=== PATIENT | male | born 1985 | race Caucasian/White ===

== ENCOUNTER 2021-12-18 08:41 | Inpatient (IN) | payer BC, SELFPAY ==
[2021-12-18] VITALS (9 sets, daily range): BP systolic 112–146; BP diastolic 71–101; PULSE 104–123; RESP 14–18; TEMP 37–37.7; O2SAT 96; BMI 41.2
--- NOTE | ~2021-12-18 | XR_ITS ---
XR chest 2V DATE: 12/18/2021 09:20 INDICATION: Shortness of breath, cough. Hypertension. TECHNIQUE: PA and lateral views COMPARISON: None FINDINGS: Ill-defined increased density overlies the posterior lower lobes on the lateral view. Mild infiltrate or atelectasis is suggested in the lower lobes, right greater than left. Recommend clinica l correlation. Follow-up chest radiographs and CT chest if necessary are recommended. Normal heart size. No pleural effusion or pulmonary vascular congestion or pneumothorax. IMPRESSION: Bilateral lower lobe infiltrate or atelectasis is suggested. Recommend continued radiogra phic follow-up to ensure clearing. Reviewed, dictated and finalized at location A. IMPRESSION: Bilateral lower lobe infiltrate or atelectasis is suggested. Recomm end continued radiographic follow-up to ensure clearing.
--- NOTE | ~2021-12-18 | CT_ITS ---
EXAMINATION: CTA chest PE protocol DATE: 12/18/2021 10:36 INDICATION: Shortness of breath. Elevated d-dimer. TECHNIQUE: Computed tomography angiography (CTA) of the chest was performed with 100 mL Omnipaque-350 intravenous contrast timed to evaluate the pulmonary arteries. Coronal maximum intensity projection 3D-reconstructions were created by the technologist. Automated exposure control and iterative reconst ruction technique were employed. Exam dose: 975.75 mGy-cm total exam DLP. COMPARISON: None. FINDINGS: There is suboptimal contrast enhancement of the pulmonary arteries due to timing, with grea ter concentration of contrast material in the aorta. However, some filling defects consistent with pu lmonary emboli are identified bilaterally, including the left upper lobe and right lower lobe in part icular. Normal heart size. No pericardial or pleural effusion. No thoracic aortic aneurysm or dissection. No hilar or mediastinal mass lesion or lymphadenopathy. Minimal patchy posterior segment right upper lobe infiltrate. Minimal patchy posterior middle lobe in filtrate. Prominent patchy consolidating right lower lobe infiltrate. Minimal patchy left lower lobe infiltrate. Normal morphology of the adrenal glands. No suspicious osteolytic or osteoblastic lesions. IMPRESSION: Bilateral infiltrates, most prominent in the right lower lobe, suggesting bilateral pneu monia Mild bilateral pulmonary embolism Reviewed, dictated and finalized at Location [facility]. Reviewed, dictated and finalized at location A. IMPRESSION: Bilateral infiltrates, most prominent in the right lower lobe, sug gesting bilateral pneumonia Mild bilateral pulmonary embolism
--- NOTE | 2021-12-18 09:01 | ECG_ITS ---
Measurements Intervals [place] Rate: 106 P: 17 WI: 152 QRS: 13 QRSD: 98 T: -5 QT: 317 QTc: 421 Interpretive Statements SINUS TACHYCARDIA NONSPECIFIC T-WAVE ABNORMALITY ABNORMAL RHYTHM ECG NO PREVIOUS ECG AVAILABLE FOR COMPARISON Electronically Signed On 12-18-2021 15:33:56 CDT by Noah Steve M.D.
[2021-12-18 09:33] LABS: Basophils Absolute Auto 0.1 K/mm3 (0.0-0.1); Basophils Percent Auto 0.7 % (0.2-1.2); Eosinophils Absolute Auto 0.4 K/mm3 (0-0.3); Eosinophils Percent Auto 2.8 % (0-4.4); Hematocrit 44.3 % (42.0-52.0); Hemoglobin 14.3 g/dL (14.0-18.0); Immature Granulocyte Absolute 0.16 K/mm3 (0.00-0.031); Immature Granulocyte Percent A 1.3 % (0-0.5); Lymphocytes Absolute Auto 2.36 K/mm3 (0.9-3.2); Lymphocytes Percent Auto 18.6 % (18.3-44.2); Mean Corpuscular HGB Conc 32.3 g/dl (32-36); Mean Corpuscular Hemoglobin 27.1 pg (26-34); Mean Corpuscular Volume 84.1 fl (80-100); Mean Platelet Volume 10.6 fl (7.4-10.4); Monocytes Absolute Auto 0.6 K/mm3 (0.1-0.6); Monocytes Percent Auto 4.8 % (2.6-8.5); Neutrophils Absolute Auto 9.1 K/mm3 (1.3-6.7); Neutrophils Percent Auto 71.8 % (45.5-73.1); Platelet Count Result 375 k/mm3 (150-375); Red Blood Count 5.27 M/mm3 (4.6-6.20); Red Cell Distribution Width 13.5 % (11.5-14.5); White Blood Count 12.7 K/mm3 (4.5-10.0)
[2021-12-18 09:43] LABS: Alanine Aminotransferase 56 U/L (6-50); Albumin Level 4.4 g/dL (3.5-5.1); Alkaline Phosphatase 108 U/L (38-126); Anion Gap 7 mmol/L (8-16); Aspartate Amino Transferase 28 U/L (17-59); Bilirubin,Total 0.4 mg/dL (0.2-1.3); Blood Urea Nitrogen 15 mg/dL (9-20); Calcium 9.1 mg/dL (8.4-10.2); Carbon Dioxide 28 mmol/L (22-30); Chloride 104 mmol/L (98-107); Estimated CRCL calculation 152 ml/min; Estimated Glomerular Filt Rate > 60; Glucose 144 mg/dL (65-110); Potassium 4.3 mmol/L (3.4-5.0); Sodium 139 mmol/L (137-145)
[2021-12-18 09:44] LABS: Lactic Acid Reflex 0.9 mmol/L (0.7-2.0)
[2021-12-18 09:46] LABS: Prothrombin Time 13.1 Seconds (11.1-14.7)
[2021-12-18 09:49] LABS: D Dimer 0.62 ug/mL (<0.48)
[2021-12-18 09:56] LABS: NT Pro B Type Natriuretic Pept 37 pg/mL (5-100); Troponin I < 0.012 ng/mL (0.000-0.034)
--- NOTE | 2021-12-18 10:07 | ED.URI ---
HPI - URI/Sore Throat General Chief Complaint: Upper Respiratory Infection Stated Complaint: shortness of breath, HTN Time Seen by Provider: 12/18/21 08:46 Source: patient and RN notes reviewed Mode of arrival: ambulatory Limitations: no limitations History of Present Illness HPI Narrative: This is a 36 year old male who presents for evaluation of shortness of breath and hypertension. Patient states over 1 week ago he developed sore throat and cough. He was evaluated at an urgent care . He continued to have cough, sore throat with hoarseness so he was started on antibiotics and steroids by his PCP. He has also had episodes of cold sweats. He denies chest pain but he is having shortness of breath. He noticed that his blood pressure was systolic 170s so he was referred to ER by PCP. He denies history of hypertension. He denies leg swelling or pain. HE denies history of heart, lung disease. Related Data Allergies Allergy/AdvReac Type Severity Reaction Status Date / Time levofloxacin Allergy Unknown rash Verified 12/18/21 09:00 Review of Systems Review of Systems: All systems reviewed & are unremarkable except as noted in HPI and below Constitutional: Constitutional: Denies chills, Reports fatigue and Denies fever(s) Eyes: Eyes: Denies change in vision ENT: Denies nasal congestion and Reports sore throat Cardiovascular: Cardiovascular: Denies chest pain, Denies rapid heart rate and Denies radiating jaw, neck or arm pain Respiratory: Respiratory: Reports chest congestion, Reports dyspnea and Reports wheezing Gastrointestinal: Gastrointestinal: Denies abdominal pain, Denies bloating, Denies constipation, Denies heartburn, Denies diarrhea, Denies nausea and Denies vomiting Genitourinary: Genitourinary: Denies hematuria and Denies oliguria Neurologic: Denies syncope, Denies headache(s), Denies focal weakness and Denies numbness Psychiatric: Psychiatric: Denies anxiety and Denies depression Allergic/Immunologic: Allergic/Immunologic: Denies lip swelling and Denies throat swelling [facility] Past Medical History Medical History Appendicitis Lumbar disc disease Morbid (severe) obesity due to excess calories Surgical History Surgical History History of appendectomy 2004 Previous back surgery 2004 Family History Family History Mother Family history of premature coronary heart disease Father Hypertension History of kidney cancer Grandparent Diabetes mellitus Sibling Crohn's disease Other CHF (congestive heart failure) Social History Social History Smoking status: Never smoker Second hand tobacco smoke exposure: Yes Alcohol intake: current Drinks per week: 10 Substance use: never Substance use type: does not use 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 Gender identity (if verbalized by the patient): Male Spiritual care concerns: No Exam Const: General: alert and diaphoretic Nutritional Appearance: obese Orientation/consciousness: patient oriented x3 Limitations: no limitations HENMT: Head: normal to inspection Face and sinus: normal facial exam Mouth: Yes Normal oral and palatal mucosa present Throat: posterior oropharynx normal Eyes: EOM: EOMs intact bilaterally Chest: Chest palpation & inspection: normal inspection of the chest Resp: Effort & Inspection: normal respiratory effort Auscultation: clear to auscultation bilaterally Cardio: Rate: tachycardic Rhythm: regular rhythm Heart sounds: no murmurs GI: GI Palp: Yes Soft to palpation, No Tenderness to palpation present (GI) and No Rigid due to palpation Auscultation: normal bowel sounds Back/Spine/Pelvis: Back: no CVA tenderness Skin: Rashes: no rashes Woun
[2021-12-18 10:37] LABS: Influenza A QL RT-PCR Negative (Negative); Influenza B QL RT-PCR Negative (Negative); SARS-CoV-2 RNA PCR Negative
[2021-12-18 10:39] LABS: Monoscreen Negative (Negative); Negative Monotest Control Negative (Negative); Positive Monotest Control Positive (Positive)
[2021-12-18] MEDS: ENOXAPARIN 120 MG/0.8 ML SYRINGE 160 MG SUB-Q (12:00)
--- NOTE | 2021-12-18 14:34 | PM.IMHP ---
H&P: HPI History of Present Illness Date/Time: 12/18/21 14:34 Chief Complaint: Upper respiratory tract x 1 week Narrative: 36-year-old male with past medical history of appendicitis and ruptured discs who presents to our care with complaints of URI x 10 days. He reports he first began to feel bad on the 08 of December, and then broke out into a fever on the 10 of December. He developed a cough by the and lost his voice the next day which is what prompted him to go to the urgent care. He was diagnosed with an upper respiratory tract infection and was given Tylenol with codeine and Tessalon pearls, which didn't help his symptoms. By last Saturday he began to have severe sore throat and had a telehealth visit with his primary care provider who started him on cefdinir, a steroid, and an inhaler to be used twice a day and was diagnosed with possibly mono. He was advised to discontinue the steroid if his blood pressure got above 140/90. On Saturday his BP reached 175/117 and he discontinued the steroid. He continued to have pain in his throat and chest when coughing, was breaking out into sweats, and overall feeling worse so was subsequently advised by primary care to come to the ER. He does report a long airplane flight from the [place] on the 25 of November (3 weeks ago). He denied any calf pain or swelling. He also denies hemoptysis, chest pain palpitations, rapid heart rate, wheezing, diarrhea, nausea, vomiting, abdominal pain, urinary changes, syncope, or reduced appetite or thirst. He denies any chronic medical conditions and is not taking any prescription, OTC, or supplemental medications aside from those prescribed recently by the urgent care and PCP. He has a history of appendicitis with appendectomy in 2003 and a back surgery in 2004 related to ruptured discs in his back. He reports a significant family history of heart disease, with his father having CHF and hypertension and his mother with multiple MIs and cardiac stents. He denies any family history of blood clots or coagulopathy to the best of his knowledge. He admits he has not seen a primary care provider in over 2 years and does not believe he has received any diabetic or cholesterol screening, though he acknowledges he certainly has risk factors and wishes to make a change. He admits to a poor diet. 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 He drinks a few times a month anywhere from 2 -12 drinks, depending on the event. He is a never smoker and denies any use of elicit substances, marijuana, or street drug use. ER workup was significant for chest CTA PE protocol showing bilateral infiltrates, most prominent in the right lower lobe, suggesting bilateral pneumonia, and mild bilateral pulmonary embolism. Leukocytosis at 12.7, Lactic acid 0.9, elevated D-Dimer, negative troponin, EKG showing sinus tachycardia, Q wave and T wave inversion in lead III, chest x-ray showing bilateral lobe infiltrate or atelectasis. Patient's current vitals include heart rate 111, RR 18/ O2 sat 96% on RA, BP 112/71, and Tmax 98.9?. At this time, he will be admitted for further treatment in the setting of acute pulmonary emboli, as well as CAP. Discussed this plan with the patient who agreed. Patient's was in the room during my encounter and the patient did consent to discussing his medical care with her. Review of Systems Review of Systems: All systems reviewed & are unremarkable except as noted in HPI and below PMFSH Past Medical History Medical History Appendicitis Lumbar disc disease Morbid (severe) obesity due to excess calories Surgical History Surgical History History of appendectomy 2003 Previous back surgery 2004 Family History Family History Mother Family history of premature coronary heart dise
[2021-12-18] MEDS: ALBUTEROL SULFATE NEB 2.5 MG/3 ML INH 5 MG INHALATION ×2 (14:38→19:34)
[2021-12-18] MEDS: IPRATROPIUM BR 0.02% INH SOLN 0.5 MG/2.5 ML VIAL INHALATION ×2 (14:38→19:35)
[2021-12-18 15:08] LABS: Cholesterol 186 mg/dL (0-200); HDL Direct 30 mg/dL; Triglycerides 189 mg/dL (<150)
[2021-12-18 15:19] LABS: LDL Cholesterol Direct 111 mg/dL
[2021-12-18 15:27] LABS: Magnesium 2.3 mg/dL (1.6-2.3)
[2021-12-18 15:35] LABS: Hemoglobin A1C 6.6 % (<5.7)
[2021-12-18 15:43] LABS: Procalcitonin 0.1 ng/mL
--- NOTE | 2021-12-18 15:47 | ADMGEN ---
This patient, Eligio Munoz, was admitted to Medical Room 346-01. Patient/family oriented to hospital policies and general routines including ID bracelet, bed and alarms, visiting hours, pain management, procedures, bathroom and other care routines, personal items, smoking policy, room service/diet, and visiting hours. Information on how to activate the Rapid Response Team has been discussed. Patient/Family are encouraged to report perceived risks to care and to ask questions if they do not understand what they are told or what they should do.
[2021-12-18] MEDS: METOPROLOL TARTRATE INJ 5 MG/5 ML VIAL IV PUSH (15:56)
[2021-12-18 16:21] LABS: Lactic Acid Reflex 1.2 mmol/L (0.7-2.0)
[2021-12-18] MEDS: BENZONATATE 100 MG CAPSULE 200 MG PO (16:25)
[2021-12-18 16:37] LABS: Appearance Urine Slightly Cloudy (Clear); Bilirubin Urine Negative (Negative); Blood Urine Negative (Negative); Color Urine Yellow (Yellow); Glucose Urine UA Negative (Negative); Ketones Urine Negative (Negative); Leukocyte Esterase Ur Negative LEU/UL (Negative); Nitrate Urine Negative (Negative); Protein Urine 1+ mg/dL (Negative); Specific Grav Ur 1.015 (1.001-1.035); Urobilinogen Urine 0.2 mg/dL (<2.0)
[2021-12-18 16:41] LABS: Add Urine Microscopic? YES; Mucus Urine Rare /lpf; Squamous Epithelial Cell Urine Rare /hpf (Few); WBC Urine 0-3 /hpf
[2021-12-18 16:57] LABS: Glucose Point of Care 134 mg/dl (65-105)
[2021-12-18 17:25] LABS: Troponin I < 0.012 ng/mL (0.000-0.034)
[2021-12-18] MEDS: guaiFENesin 12 HR 600 MG TABCR 1200 MG PO (20:00)
[2021-12-18 21:04] LABS: Glucose Point of Care 229 mg/dl (65-105)
[2021-12-18] MEDS: ENOXAPARIN 80 MG/0.8 ML SYRINGE 160 MG SUB-Q (23:48)
[2021-12-19] VITALS (14 sets, daily range): BP systolic 128–134; BP diastolic 75–80; PULSE 69–105; RESP 16–18; TEMP 36.6–36.9; O2SAT 96
--- NOTE | 2021-12-19 | ECHO_ITS ---
Patient Info Name: Eligio Munoz Age: 36 years : 1985 Gender: Male Ht: 72 in Wt: 350 lbs BSA: 2.92 m2 HR: 85 bpm BP: 128 / 75 mmHg Technical Quality: Fair Exam Date: 12/19/2021 8:33 AM Exam Location: [facility] Patient Status: Outpatient Admit Date: 12/18/2021 Staff Ordering Physician: Alysha Hdz PA-C Felled Seam Operator Chain[employer]ch: Aftab Alba RDCS, RT Attending Provider: Alysha Hdz PA-C Referring Physician: Andreina ASTUDILLO; Exam Type: CA echo doppler color flow Study Info Indications I26.99 - Other pulmonary embolism without acute cor pulmonale Complete two-dimensional, color flow and Doppler transthoracic echocardiogram is performed. Summary 1. Complete two-dimensional, color flow and Doppler transthoracic echocardiogram is performed. 2. Left ventricular chamber dimension is mildly enlarged. 3. Left ventricular systolic function is normal, estimated at 60-65%. 4. The left ventricular diastolic function is grade I diastolic dysfunction. 5. E/e' 6 is not elevated. Left Ventricle E/e' 6 is not elevated. Left ventricular chamber dimension is mildly enlarged. Left ventricular systolic function is normal, estimated at 60-65%. The left ventricular diastolic function is grade I diastolic dysfunction. Right Ventricle Right ventricular systolic function is normal and with normal TAPSE 2.4 cm. Right ventricular chamber dimension is normal. Left Atria Left atrial chamber dimension is normal. Right Atria Right atrial chamber dimension is normal. Aortic Valve The aortic valve is trileaflet. There is no aortic valve stenosis. There is no aortic valve regurgitation. Pulmonic Valve There is no pulmonic regurgitation. Mitral Valve There is no mitral valve stenosis. There is no mitral valve regurgitation. Tricuspid Valve There is no tricuspid valve regurgitation. Pericardium/Pleural There is no pericardial effusion. Inferior Vena Cava Inferior vena cava is not well visualized. Aorta The aortic root size at the sinus of Valsalva is normal. Left Ventricular Outflow Tract Name Value Normal LVOT 2D LVOT Diameter 2.2 cm LVOT Doppler LVOT Peak Gradient 4 mmHg LVOT Mean Gradient 2 mmHg LVOT VTI 17 cm LVOT VTI/AV VTI Ratio 0.9 LVOT Stroke Volume 66 ml LVOT CO 5.5 l/min LVOT CI 1.9 l/min/m2 Mitral Valve Name Value Normal MV Doppler MV Decel [place] 318 cm/s2 MV PHT 61 ms MV Area (PHT) 3.6 cm2 4.0-5.0 MV Diastolic Function MV E Peak Velocity
[2021-12-19] MEDS: ALBUTEROL SULFATE NEB 2.5 MG/3 ML INH 5 MG INHALATION ×3 (02:50→13:40)
[2021-12-19] MEDS: IPRATROPIUM BR 0.02% INH SOLN 0.5 MG/2.5 ML VIAL INHALATION ×3 (02:50→13:40)
[2021-12-19 05:54] LABS: Basophils Absolute Auto 0.1 K/mm3 (0.0-0.1); Basophils Percent Auto 0.6 % (0.2-1.2); Eosinophils Absolute Auto 0.3 K/mm3 (0-0.3); Eosinophils Percent Auto 2.9 % (0-4.4); Hematocrit 39.9 % (42.0-52.0); Hemoglobin 12.8 g/dL (14.0-18.0); Immature Granulocyte Absolute 0.16 K/mm3 (0.00-0.031); Immature Granulocyte Percent A 1.6 % (0-0.5); Lymphocytes Absolute Auto 2.44 K/mm3 (0.9-3.2); Mean Corpuscular HGB Conc 32.1 g/dl (32-36); Mean Corpuscular Hemoglobin 27.2 pg (26-34); Mean Corpuscular Volume 84.7 fl (80-100); Mean Platelet Volume 10.8 fl (7.4-10.4); Monocytes Absolute Auto 0.5 K/mm3 (0.1-0.6); Neutrophils Absolute Auto 6.7 K/mm3 (1.3-6.7); Neutrophils Percent Auto 65.9 % (45.5-73.1); Platelet Count Result 321 k/mm3 (150-375); Red Blood Count 4.71 M/mm3 (4.6-6.20); Red Cell Distribution Width 13.5 % (11.5-14.5); White Blood Count 10.2 K/mm3 (4.5-10.0)
[2021-12-19 06:17] LABS: Alanine Aminotransferase 40 U/L (6-50); Albumin Level 3.7 g/dL (3.5-5.1); Alkaline Phosphatase 97 U/L (38-126); Anion Gap 5 mmol/L (8-16); Aspartate Amino Transferase 27 U/L (17-59); Bilirubin,Total 0.2 mg/dL (0.2-1.3); Blood Urea Nitrogen 15 mg/dL (9-20); Calcium 8.5 mg/dL (8.4-10.2); Carbon Dioxide 28 mmol/L (22-30); Chloride 101 mmol/L (98-107); Estimated CRCL calculation 127 ml/min; Estimated Glomerular Filt Rate > 60; Glucose 148 mg/dL (65-110); Potassium 3.9 mmol/L (3.4-5.0); Sodium 134 mmol/L (137-145)
[2021-12-19 07:50] LABS: Glucose Point of Care 137 mg/dl (65-105)
[2021-12-19] MEDS: guaiFENesin 12 HR 600 MG TABCR 1200 MG PO (08:59)
[2021-12-19] MEDS: BENZONATATE 100 MG CAPSULE 200 MG PO ×3 (09:00→17:01)
[2021-12-19] MEDS: APIXABAN 5 MG TABLET 10 MG PO (09:00)
--- NOTE | 2021-12-19 11:39 | PCDIET ---
Dietitian consult for new dx of DM. See Nutritional Teaching Intervention. Thank you for the consult.
[2021-12-19 12:06] LABS: Glucose Point of Care 118 mg/dl (65-105)
[2021-12-19 16:13] LABS: Glucose Point of Care 109 mg/dl (65-105)
--- NOTE | 2021-12-19 16:37 | PM.DS ---
DS: Admitting Diagnosis Discharge Date 12/19/21 1700 Admitting Diagnosis URI DS: Discharge Diagnosis Discharge Diagnosis (1) Bilateral pulmonary embolism: Code(s): I26.99 - Other pulmonary embolism without acute cor pulmonale Status: Acute Assessment and Plan: Patient with recent 5hr air travel, 10 days of URI symptoms, and incidental finding of bilateral PE on CTA chest today. D-Dimer was elevated at 0.62, patient is currently tachycardic and hypertensive, saturating well on room air. Treatment was initiated with therapeutic lovenox today, and he will be transitioned to Eliquis PO tomorrow. Patient did complain of some chest pain, with negative initial troponin in the ER, CXR showing pneumonia, and EKG showing tachycardia with NSR. Echo ordered TSH Continue second dose of therapeutic lovenox, with transition to Eliquis 10mg PO BID in the AM. Continue to monitor VS/telemetry Supplemental O2 as needed. 12/19 patient's insurance did not cover Eliquis, but covered Xarelto. We transitioned him to his 1st dose of Xarelto here in the hospital, and he will be discharged with a prescription for this going forward. Care coordination provided with cost reducing coupons. He has been told he needs to establish care with his primary care provider to manage his anticoagulation going forward. We also discussed return precautions. Patient is saturating well on room air at this time, his tachycardia and hypertension have resolved. He has had no further need for the Lopressor. (2) Bilateral pneumonia: Code(s): J18.9 - Pneumonia, unspecified organism Status: Acute Assessment and Plan: CTA chest showing pneumonia. His last Temp was 99.9 upon reaching the floor. He continues to saturate well on room air without tachypnea. Patient was treated outpatient for a URI and theoretically also mono with Cefdinir. Patient tested negative for mono, influenza and covid in the ER. Will also check sputum cultures, legionella, pneumococcal antigen, c. pneumonia PCR, strep. Started on Azithromycin and ceftriaxone for empiric CAP coverage. He is saturating well on PO intake and does not appear dehydrated at this time. Trend infectious markers, Calcitonin, lactic acid, AM labs Blood cultures were ordered in the ER and are pending. Inhaler/nebs PRN Tylenol for fever/pain control. Guaifenesin/tessalon perles for cough. Supplemental oxygen as needed. Monitor VS. 12/19 preliminary blood cultures showed no growth, sputum culture showed she moderate epithelial cells, no white blood cells and moderate mixed bacterial severo. Echo showed LVEF of 60 65% grade 1 diastolic dysfunction, no evidence of right heart strain. Will discharge patient with Augmentin x 4 days outpatient and albuterol inhaler as needed for shortness of breath. (3) Hypertension: Code(s): I10 - Essential (primary) hypertension Status: Acute Assessment and Plan: BP was 146/101 on the floor with HR 117. IV lopressor given. Additional Q4Hr lopressor IV dosing made available to patient. Will re-evaluate if daily dosing is required for this patient. Patient has also been on an oral steroid over the weekend. 12/19-patient did not need any additional Lopressor dosages, and his blood pressure has normalized at this time. Will advise him to follow up outpatient with primary care. (4) Morbid (severe) obesity due to excess calories: Code(s): E66.01 - Morbid (severe) obesity due to excess calories Status: Acute Assessment and Plan: Patient has several risk factors, will order A1C, lipid panel, discussed weight loss and healthy lifestyle with patient. He is very receptive and wants to make changes. 12/19-patient met with a dietitian during his stay, who educated on a diabetic diet. (5) Diabetes: Code(s): E11.9 - Type 2 diabetes mellitus without complications Status: Acute Assessment and Plan: With
[2021-12-19] MEDS: RIVAROXABAN 15 MG TABLET PO (17:01)
[2021-12-19 17:23] LABS: Magnesium 2.3 mg/dL (1.6-2.3)
[2021-12-22 16:28] LABS: Pneumococcal Antigen Urine Not Detected (Not Detected)
[2021-12-22 23:07] LABS: Legionella pneumophila Ag Ur Not Detected (Not Detected)
== END 2021-12-19 17:44 | disposition home or self-care (01) | DRG 175 ==
LOC: ANHED 11:41 → ANH3MED 14:25
PROVIDERS: Student in an Organized Health Care Education/Training Program; Admitting Provider Student in an Organized Health Care Education/Training Program; Emergency Provider General Practice; PCP Family Medicine; Visit Provider Student in an Organized Health Care Education/Training Program
DX: I26.99 Other pulmonary embolism without acute cor pulmonale (principal); J18.9 Pneumonia, unspecified organism; Z68.41 Body mass index [BMI] 40.0-44.9, adult; E66.01 Morbid (severe) obesity due to excess calories; I10 Essential (primary) hypertension; E11.9 Type 2 diabetes mellitus without complications; Z20.822 Contact with and (suspected) exposure to COVID-19; M51.9 Unspecified thoracic, thoracolumbar and lumbosacral intervertebral disc disorder; Z90.49 Acquired absence of other specified parts of digestive tract
CPT/HCPCS: 36415; 71046; 71275; 80053; 80061; 81001; 82948; 83036; 83605; 83735; 83880; 84145; 84443; 84484; 85025; 85380; 85610; 85730; 86308; 87040; 87070; 87081; 87205; 87449; 87486; 87502; 87899; 93005; 93306; 94640; 96365; 96366; 96367; 96372; 96375; 99285; A9270; C9803; G0378; J0456; J0696; J1650; Q9967; U0003; U0005

== ENCOUNTER 2022-09-03 08:47 | Emergency (ER) | payer BC, SELFPAY ==
[2022-09-03] VITALS (14 sets, daily range): BP systolic 156–178; BP diastolic 88–127; PULSE 88–100; RESP 16–23; O2SAT 96–100
[2022-09-03 09:04] LABS: Glucose Point of Care 301 mg/dl (65-105)
[2022-09-03 09:25] LABS: Appearance Urine Clear (Clear); Bilirubin Urine Negative (Negative); Blood Urine Negative (Negative); Color Urine Yellow (Yellow); Glucose Urine UA 3+ mg/dL (Negative); Ketones Urine Negative (Negative); Leukocyte Esterase Ur Negative LEU/UL (Negative); Nitrate Urine Negative (Negative); Protein Urine Negative (Negative); Specific Grav Ur 1.032 (1.001-1.035); Urobilinogen Urine 0.2 mg/dL (<2.0); pH Urine 6.5 (5.0-9.0)
[2022-09-03 09:26] LABS: Basophils Absolute Auto 0.1 K/mm3 (0.0-0.1); Basophils Percent Auto 0.8 % (0.2-1.2); Eosinophils Absolute Auto 0.3 K/mm3 (0-0.3); Eosinophils Percent Auto 3.2 % (0-4.4); Hematocrit 46.6 % (42.0-52.0); Hemoglobin 14.7 g/dL (14.0-18.0); Immature Granulocyte Absolute 0.05 K/mm3 (0.00-0.031); Immature Granulocyte Percent A 0.6 % (0-0.5); Lymphocytes Absolute Auto 1.63 K/mm3 (0.9-3.2); Lymphocytes Percent Auto 17.9 % (18.3-44.2); Mean Corpuscular HGB Conc 31.5 g/dl (32-36); Mean Corpuscular Hemoglobin 27.4 pg (26-34); Mean Corpuscular Volume 86.8 fl (80-100); Mean Platelet Volume 11.6 fl (7.4-10.4); Monocytes Absolute Auto 0.4 K/mm3 (0.1-0.6); Monocytes Percent Auto 4.6 % (2.6-8.5); Neutrophils Absolute Auto 6.6 K/mm3 (1.3-6.7); Neutrophils Percent Auto 72.9 % (45.5-73.1); Platelet Count Result 248 k/mm3 (150-375); Red Blood Count 5.37 M/mm3 (4.6-6.20); Red Cell Distribution Width 13.2 % (11.5-14.5); White Blood Count 9.1 K/mm3 (4.5-10.0)
[2022-09-03] MEDS: LACTATED RINGERS 2,000 ML 999 ML IV CONT (09:36)
[2022-09-03 09:40] LABS: Alanine Aminotransferase 31 U/L (6-50); Albumin Level 4.6 g/dL (3.5-5.1); Alkaline Phosphatase 106 U/L (38-126); Anion Gap 7 mmol/L (8-16); Aspartate Amino Transferase 24 U/L (17-59); Bilirubin,Total 0.5 mg/dL (0.2-1.3); Blood Urea Nitrogen 10 mg/dL (9-20); Calcium 8.9 mg/dL (8.4-10.2); Carbon Dioxide 26 mmol/L (22-30); Chloride 97 mmol/L (98-107); Estimated CRCL calculation 172 ml/min; Estimated Glomerular Filt Rate > 60; Glucose 296 mg/dL (65-110); Phosphorus 2.6 mg/dL (2.5-4.5); Potassium 3.9 mmol/L (3.4-5.0); Sodium 130 mmol/L (137-145)
[2022-09-03 09:54] LABS: Bacteria Urine None Seen /hpf; Non Pathogenic Casts 0-2; RBC Urine 0-2 /hpf (0-2); Squamous Epithelial Cell Urine None seen /hpf (Few); WBC Urine 0-5 /hpf
[2022-09-03 09:57] LABS: Add Urine Microscopic? YES
--- NOTE | 2022-09-03 10:25 | ED.RECABL ---
HPI - Recheck/Abnormal Lab/Rx General Chief Complaint: Recheck/Abnormal Lab/Rx Stated Complaint: high BS Time Seen by Provider: 09/03/22 08:59 History of Present Illness HPI narrative: This is a 37-year-old male with reported past medical history of prediabetes, who presents to the emergency department with elevated blood sugars. The patient states approximately week ago, he was given steroids for an upper respiratory infection and noted his blood sugars were elevated to the 300s. Approximately 4 days ago, he noted that they return to the 120s. Today he felt some lightheadedness and headache, he rechecked his blood sugar was in the 300s. He has no other complaints today. Related Data Allergies Allergy/AdvReac Type Severity Reaction Status Date / Time levofloxacin Allergy Unknown rash Verified 09/03/22 10:09 Review of Systems Review of Systems: CONSTITUTIONAL: Denies fever, chills, or sweats. EYES: Denies visual changes, redness, or discharge. ENT: Denies rhinorrhea, congestion, sore throat, or otalgia. CARDIOVASCULAR: Denies chest pain, palpitations, or edema. RESPIRATORY: Denies cough or dyspnea. GASTROINTESTINAL: Denies abdominal pain, nausea, vomiting, or diarrhea. GENITOURINARY: Denies dysuria or hematuria. SKIN: Denies rash or itching. MUSCULOSKELETAL: Denies back pain, joint pain, or myalgia. NEUROLOGIC: Mild headache denies numbness, dizziness, or weakness. PSYCHIATRIC: Denies anxiety or depression. PMFSH Past Medical History Medical History Appendicitis BMI greater than 40 Hx of pneumococcal pneumonia Hx of pulmonary embolus Lumbar disc disease Morbid (severe) obesity due to excess calories Surgical History Surgical History History of appendectomy 2004 Previous back surgery 2004 Family History Family History Mother Family history of premature coronary heart disease Father Hypertension History of kidney cancer Grandparent Diabetes mellitus Sibling Crohn's disease Other CHF (congestive heart failure) Social History Social History Smoking status: Never smoker Second hand tobacco smoke exposure: Yes Alcohol intake: current Drinks per week: 7 Substance use: never Substance use type: does not use Living arrangements: with family Occupation/Education: occupation 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 HEAD: Normocephalic, atraumatic. EYES: PERRLA and EOMI. ENT: Nares clear, no rhinorrhea or epistaxis. Mucous membranes moist. Oropharynx without tonsillar hypertrophy exudate or other lesions. CHEST: Clear to auscultation. No respiratory distress. No wheezes rales or rhonchi HEART: Regular rate and rhythm. No murmur heard. Normal peripheral pulses. ABDOMEN: Soft, nontender, nondistended, normal active bowel sounds. EXTREMITIES: Normal range of motion. No edema. SKIN: Warm, dry, no rash. NEURO: No focal deficits. Alert and oriented x3. PSYCH: Normal mood and affect. Course Course Emergency Course: 11:00 - Chemistries was demonstrated mild hyponatremia at 130, corrected sodium comes out to 133. Anion gap within normal limits. UA demonstrates glucose urea without ketones. Received notification from lab that beta hydroxybutyrate will be delayed. VBG pending. Will recheck fingerstick after 2 L of IV fluids with plan to discharge. The patient has a follow-up appointment today with his primary care doctor at 1400. 11:44 - Repeat fingerstick down to 194. pH on VBG 7.389 with bicarb within normal limits at 28. Will discharge with plan for the patient to follow-up wit
[2022-09-03 11:16] LABS: Fractional Inspired Oxygen 21 %; HCO3 VBG 20.8 mEq/l (24.0-30.0); PO2 VBG 108.1 mmHg (35.0-45.0)
[2022-09-03 11:19] LABS: pH VBG 7.093 (7.300-7.400)
[2022-09-03 11:20] LABS: Device ROOM AIR; PCO2 VBG 69.8 mmHg (42.0-48.0)
[2022-09-03 11:32] LABS: Fractional Inspired Oxygen 21 %; HCO3 VBG 28.1 mEq/l (24.0-30.0); PCO2 VBG 47.6 mmHg (42.0-48.0); PO2 VBG 54.5 mmHg (35.0-45.0); pH VBG 7.389 (7.300-7.400)
[2022-09-03 11:33] LABS: Device ROOM AIR
[2022-09-03 11:34] LABS: Glucose Point of Care 194 mg/dl (65-105)
[2022-09-03 16:12] LABS: Beta-Hydroxybutyrate/Acetoacetate 0.06 mmol/L (0.02-0.27)
== END 2022-09-03 11:56 | disposition home or self-care (01) ==
PROVIDERS: Emergency Provider Preventive Medicine Aerospace Medicine; PCP Family Medicine
DX: R73.9 Hyperglycemia, unspecified (principal)
CPT/HCPCS: 36415; 80053; 81001; 82010; 82803; 82948; 83735; 84100; 85025; 96360; 96361; 99285; J7120

== ENCOUNTER 2024-06-17 09:09 | Outpatient (CLI) | payer BC, SELFPAY ==
--- NOTE | 2024-06-17 11:30 | NEURO_ITS ---
Impression: # Complains of left elbow pain with numbness of left hand. ? # Left ulnar neuropathy across the elbow. ? # No Carpal Tunnel Syndrome. ? # Normal needle/EMG exam. Nerve Conduction Studies Anti Sensory Summary Table ?Stim Site NR Peak (ms) P-T Amp (?V) Site1 Site2 Delta-P (ms) Dist (cm) Gallo (m/s) Left Median Anti Sensory (2-3nd Digit) Wrist ? 3.3 41.9 Wrist 2-3nd Digit 3.3 14.0 42 Wrist ? 3.5 36.9 Wrist 2-3nd Digit 3.3 14.0 42 Right Median Anti Sensory (2-3nd Digit) Wrist ? 3.3 62.8 Wrist 2-3nd Digit 3.3 14.0 42 Wrist ? 3.4 26.3 Wrist 2-3nd Digit 3.3 14.0 42 Left Radial Anti Sensory (Base 1st Digit) Wrist ? 1.8 34.6 Wrist Base 1st Digit 1.8 0.0 Right Radial Anti Sensory (Base 1st Digit) Wrist ? 2.1 18.6 Wrist Base 1st Digit 2.1 0.0 Left Ulnar Anti Sensory (5th Digit) Wrist ? 2.5 56.2 Wrist 5th Digit 2.5 14.0 56 Right Ulnar Anti Sensory (5th Digit) Wrist ? 2.4 44.3 Wrist 5th Digit 2.4 14.0 58 Motor Summary Table ?Stim Site NR Onset (ms) O-P Amp (mV) Site1 Site2 Delta-0 (ms) Dist (cm) Gallo (m/s) Left Median Motor (Abd Poll Brev) Wrist ? 3.4 7.0 Elbow Wrist 4.8 30.0 63 Elbow ? 8.2 6.6 Right Median Motor (Abd Poll Brev) Wrist ? 3.0 7.8 Elbow Wrist 5.4 33.0 61 Elbow ? 8.4 5.3 Left Ulnar Motor (Abd Dig Minimi) Wrist ? 2.3 6.7 A Elbow Wrist 6.4 30.0 47 A Elbow ? 8.7 6.2 B Elbow Wrist 4.5 25.0 56 B Elbow ? 6.8 7.2 Right Ulnar Motor (Abd Dig Minimi) Wrist ? 2.2 7.1 A Elbow Wrist 5.4 31.0 57 A Elbow ? 7.6 5.5 F Wave Studies ?NR F-Lat (ms) L-R F-Lat (ms) Left Median (Mrkrs) (Abd Poll Brev) ? 28.48 0.00 Right Median (Mrkrs) (Abd Poll Brev) ? 28.48 0.00 Left Ulnar (Mrkrs) (Abd Dig Min) ? 28.83 0.80 Right Ulnar (Mrkrs) (Abd Dig Min) ? 28.03 0.80 EMG ?Side Muscle Nerve Root Ins Act Fibs Amp Dur Recrt Comment Right 1stDorInt Ulnar C8-T1 Nml Nml Nml Nml Nml Right Ext Indicis Radial (Post Int) C7-8 Nml Nml Nml Nml Nml Right Ext Digitorum Radial (Post Int) C7-8 Nml Nml Nml Nml Nml Right BrachioRad Radial C5-6 Nml Nml Nml Nml Nml Right PronatorTeres Median C6-7 Nml Nml Nml Nml Nml Right Abd Poll Brev Median C8-T1 Nml Nml Nml Nml Nml Right ABD Dig Min Ulnar C8-T1 Nml Nml Nml Nml Nml Left 1stDorInt Ulnar C8-T1 Nml Nml Nml Nml Nml Left Ext Indicis Radial (Post Int) C7-8 Nml Nml Nml Nml Nml Left Ext Digitorum Radial (Post Int) C7-8 Nml Nml Nml Nml Nml Left BrachioRad Radial C5-6 Nml Nml Nml Nml Nml Left PronatorTeres Median C6-7 Nml Nml Nml Nml Nml Left Abd Poll Brev Median C8-T1 Nml Nml Nml Nml Nml Left ABD Dig Min Ulnar C8-T1 Nml Nml Nml Nml Nml MTDD
== END 2024-06-17 09:10 | disposition home or self-care (01) ==
PROVIDERS: PCP Family Medicine; Visit Provider Family Medicine
DX: G56.22 Lesion of ulnar nerve, left upper limb (principal)
CPT/HCPCS: 95886; 95911